=== PATIENT | female | born 1955 | race Caucasian/White ===

== ENCOUNTER 2018-07-25 18:50 | Emergency (ER) | payer OTHER ==
[~2018-07-25] VITALS: Ht 157.5 cm; Wt 41.2 kg
[~2018-07-25 18:50] MED LIST: MVI; PERCOCET 5/31 TABLET PO
[2018-07-25] MEDS ORDERED: MIRTAZAPINE15 MG PO (19:49)
[2018-07-25 20:48] VITALS: BP 149/99
== END 2018-07-25 20:48 | disposition home or self-care (01) ==
LOC: EME 18:50
DX: F43.22 Adjustment disorder with anxiety (principal); Z88.6 Allergy status to analgesic agent; Z88.1 Allergy status to other antibiotic agents; Z88.8 Allergy status to other drugs, medicaments and biological substances
CPT/HCPCS: 90832; 99281; 99283